=== PATIENT | female | born 1975 | race Caucasian/White ===

== ENCOUNTER 2023-02-12 09:19 | Outpatient (OUT) | payer OTHER, SELFPAY ==
--- NOTE | 2023-02-12 09:21 | MM_ITS ---
Patient: EBER GOODE Exam Date: 02/12/2023 : 1975 Gender:F Ordering : DR RAVIN LOJA Admission #: [id number] Family : DR Mamie Liu M.D. Order #: [id number] CLICK HERE TO VIEW EXAM RADIOLOGY REPORT PROCEDURE: MM TOMOSYNTHESIS SCREENING BI COMPARISON: MG MAMM SCREEN 3D MAURICIO CAD, 09/07/2020. MG MAMM SCREEN 3D MAURICIO CAD, 02/04/2022. INDICATIONS: Screening Calculator Name NCI Breast Cancer Risk Assessment Tool 5 Year Breast Cancer Risk 1.20% Lifetime Breast Cancer Risk 11.30% Personal Breast Cancer No Personal Ovarian Cancer No Treatments None Family Cancers Grandfather-paternal with pancreatic cancer at age 50; Grandmother-maternal with lung cancer at age 75. LOCATION: [facility] BREAST COMPOSITION: Heterogeneously dense,which may obscure small masses. FINDINGS: DIAGNOSTIC CATEGORY 2--BENIGN FINDING. NO CHANGE FROM COMPARISON. Scattered benign-appearing nodules are present. Scattered benign-appearing calcifications are present. Scattered benign-appearing lymph nodes are present. RIGHT BREAST: No significant suspicious finding. LEFT BREAST: No significant suspicious finding. RECOMMENDATIONS: ROUTINE MAMMOGRAM AND CLINICAL EVALUATION IN 12 MONTHS. PLEASE NOTE: A NORMAL MAMMOGRAM DOES NOT EXCLUDE THE POSSIBILITY OF BREAST CANCER. A CLINICALLY SUSPICIOUS PALPABLE LUMP SHOULD BE BIOPSIED. Dictated by: Rodrigo Kaye MD on 02/12/2023 at 14:46 Approved by: Rodrigo Kaye MD on 02/12/2023 at 14:48
== END 2023-02-12 09:20 | disposition home or self-care (01) ==
LOC: MAMMO 09:19
PROVIDERS: PCP Family Medicine; Visit Provider Obstetrics & Gynecology
DX: Z12.31 Encounter for screening mammogram for malignant neoplasm of breast (principal); Z80.1 Family history of malignant neoplasm of trachea, bronchus and lung; Z80.8 Family history of malignant neoplasm of other organs or systems
CPT/HCPCS: 77063; 77067

== ENCOUNTER 2024-05-11 07:45 | Outpatient (OUT) | payer OTHER, SELFPAY ==
--- NOTE | 2024-05-11 07:47 | MM_ITS ---
Patient Name: EBER GOODE MR#: [id number] : 1975 Exam Date: 05/11/2024 Ordering Doctor: DR RAVIN LOJA RADIOLOGY REPORT PROCEDURE: MM TOMOSYNTHESIS SCREENING BI COMPARISON: MM TOMOSYNTHESIS SCREENING BI, 02/12/2023. MG MAMM SCREEN 3D MAURICIO CAD, 02/04/2022. MG MAMM MAURICIO SCRN W CAD DIG, 06/05/2015. INDICATIONS: Screening Calculator Name NCI Breast Cancer Risk Assessment Tool 5 Year Breast Cancer Risk 1.30% Lifetime Breast Cancer Risk 11.00% Personal Breast Cancer No Personal Ovarian Cancer No Treatments None Family Cancers Grandfather-paternal with pancreatic cancer at age 50; Grandmother-maternal with lung cancer at age 75. LOCATION: [facility] BREAST COMPOSITION: The breasts are heterogeneously dense,which may obscure small masses. FINDINGS: DIAGNOSTIC CATEGORY 2--BENIGN FINDING: RIGHT BREAST: No significant suspicious finding. No significant change has occurred. LEFT BREAST: No significant suspicious finding. Small benign appearing lymph node within anterior upper inner quadrant near the nipple line. RECOMMENDATIONS: ROUTINE MAMMOGRAM AND CLINICAL EVALUATION IN 12 MONTHS. PLEASE NOTE: A NORMAL MAMMOGRAM DOES NOT EXCLUDE THE POSSIBILITY OF BREAST CANCER. A CLINICALLY SUSPICIOUS PALPABLE LUMP SHOULD BE BIOPSIED. Dictated by: Raciel Garcia M.D. on 05/12/2024 at 15:36 Approved by: Raciel Garcia M.D. on 05/12/2024 at 15:43
--- OUTSIDE RECORDS SUMMARY | 2024-05-11 07:48 | XMS_ITS | CCD ---
Author Organization [facility] Care Team Providers Care Assistant Professor Nurse Education Name Role Phone Shay POWERS, Mamie Primary Care Provider TONNY, DR TATA Chavez Consulting Unavailable FREEDOM, DR KENNY Crespo Admitting Unavailable FREEDOM, DR KENNY Crespo Attending Unavailable SHAY, DR MAMIE Rush Primary Care Unavailable FREEDOM, DR KENNY Crespo Consulting Unavailable SHAY, DR MAMIE Rush Attending Unavailable PONCHO, DR MERLIN Mccain Consulting Unavailable SHAY, DR MAMIE Rush Admitting Unavailable SHAY, DR MAMIE Rush Primary Care Unavailable SHAY, DR MAMIE Rush Consulting Unavailable LINDSAY, DR ARAUJO Admitting Unavailable LINDSAY, DR ARAUJO Consulting Unavailable LINDSAY, DR ARAUJO Attending Unavailable SHAY, DR MAMIE Rush Primary Care Unavailable Mamie Liu Unavailable Mamie Liu MD Primary Care Provider [phone] KENNY LOJA Referring Unavailable MAMIE LIU Primary Care Unavailable Medications Current Medications Medication Drug Class(es) Dates Sig (Normalized) Sig (Original) clobetasol propionate 0.5 mg/ml topical cream (2 sources) Corticosteroid Clobetasol Propi julio cesar 0.05 % 1 application Externally Twice a day for 10 days Active Problems Active Problems Problem Classification Problem Date Documented Da te Episodic/Chronic Menopausal disorders (1 source) Menopausal symptom; Translations: [Menopausal and female climacteric states] Chronic Other skin disorders (1 source) Dyshidrosis [pompholyx] Episodic Residual codes; unclassified (1 source) Family history of malignant neoplasm of trachea, bronchus and lung; Translations: [FAM HX MALIG NEOPLSM TRACH BRON LNG] Onset: 02-09-2022 Episodic Residual codes; unclassified (1 source) Family history of malignant neoplasm of other organs or systems; Translations: [FAM HX MALIG NEOPLASM OTH ORGN/SYS] Onset: 02-09-2022 Episodic Unclassified (3 sources) CONTACT W/AND (SUSP) EXPOS COVID-19; Translations: [CONTACT W/AND (SUSP) EXPOS COVID-19] Onset: 02-28-2021 Past or Other Problems Problem Classification Problem Date Documented Da te Episodic/Chronic Immunizations and screening for infectious disease (2 sources) Contact with or exposure to other viral diseases; Translations: [Contact with and (suspected) exposure to covid-19] Onset: 01-06-2020 Resolved: 05-23-2023 04-23-2023 Episodic Nonspecific chest pain (7 sources) Other chest pain; Translations: [Chest pain] Onset: 06-04-2021 Episodic Other screening for suspected conditions (not mental disorders or infectious disease) (6 sources) Encounter for screening mammogram for malignant neoplasm of breast; Translations: [Encounter for screening for malignant neoplasm of colon] Onset: 09-07-2020 Resolved: 05-23-2023 Episodic Residual codes; unclassified (2 sources) Family history of cancer; Translations: [Family history of malignant neoplasm of trachea, bronchus and lung] Onset: 09-16-2020 04-23-2023 Episodic Unclassified (1 source) CONTACT W/AND (SUSP) EXPOS COVID-19; Translations: [CONTACT W/AND (SUSP) EXPOS COVID-19] Onset: 02-25-2021 Results Test Name Value Interpretation Reference Range Facility MG MAMM SCREEN 3D MAURICIO CADon 02-04-2022 MG MAMM SCREEN 3D MAURICIO CAD Patient: MEREDITH OLIVO Exam Date: 02/04/2022 : 1975 Gender:F Ordering : DR KENNY LOJA Admission #: [id number] Family : Order #: [id number] CLICK HERE TO VIEW EXAM RADIOLOGY REPORT PROCEDURE: MAMMOGRAM SCREENING 3D BILATERAL CAD COMPARISON: MG MAMM SCREEN MAURICIO W CAD, 06/17/2018. MG MAMM SCREEN 3D MAURICIO CAD, 09/07/2020. INDICATIONS: Screening mammography Calculator Name NCI Breast Cancer Risk Assessment Tool 5 Year Breast Cancer Risk 1.10% Lifetime Breast Cancer Risk 11.40% Personal Breast Cancer No Personal Ovarian Cancer No Treatments None Family Cancers Grandfather-paternal with pancreatic cancer at age 50; Grandmother-maternal with lung cancer at age 75. LOCATION: [facility] BREAST COMPOSITION: Heterogeneously dense,which may obscure small masses. FINDINGS: DIAGNOSTIC CATEGORY 2--BENIGN FINDING. NO CHANGE FROM COMPARISON. Scattered benign-appearing nodules are present. Scattered benign-appearing calcifications are present. Scattered benign-appearing lymph nodes are present. RIGHT BREAST: No significant suspicious finding. LEFT BREAST: No significant suspicious finding. RECOMMENDATIONS: ROUTINE MAMMOGRAM AND CLINICAL EVALUATION IN 12 MONTHS. PLEASE NOTE: A NORMAL MAMMOGRAM DOES NOT EXCLUDE THE POSSIBILITY OF BREAST CANCER. A CLINICALLY SUSPICIOUS PALPABLE LUMP SHOULD BE BIOPSIED. Dictated by: Tata Lancaster MD on 02/04/2022 at 11:08 Approved by: Ttaa Lancaster MD on 02/04/2022 at 11:10 [address] [facility] XR CHEST 2 Von 06-04-2021 XR CHEST 2 V EXAMINATION: XR CHEST 2 V HISTORY: Chest pain ; right chest wall pain, no known injury COMPARISON: No relevant comparison available. FINDINGS: LUNGS: Small dense calcified nodule within left lung base favoring a chronic granuloma. Lungs well-expanded and clear. VASCULATURE: No increased pulmonary vasculature. PLEURA: No pneumothorax, effusion, or pleural thickening. CARDIAC: No cardiomegaly or cardiac silhouette abnormality. MEDIASTINUM: No visible mass or adenopathy. BONES: No visible fracture or visible bone lesion. OTHER: Negative. IMPRESSION: 1. No acute cardiopulmonary process. 2. No appreciable rib abnormality or suspicious findings to account for patient's symptoms. Electronically authenticated by: MERLIN ISAAC Date: 2021-06-04 18:[address] [facility]11 SARS-CoV-2 (COVID-19) RNA DOMITILA+probe Ql (Unsp spec) Not detected Normal NOT DETECTED [facility] Comment on above: Result Comment: This test is not yet approved or cleared by the [place] FDA. When there are no FDA-approved or cleared tests available, and other criteria are met, FDA can make tests available under an emergency access mechanism called an Emergency Use Authorization (EUA). The EUA for this test is supported by the [place] Dra[employer] of Health and Human Service's (HHS's) declaration that circumstances exist to justify the emergency use of in vitro diagnostics for the detection and/or diagnosis of the virus that causes COVID-19. This EUA will remain in effect (meaning this test can be used) for the duration of the COVID-19 declaration justifying emergency of IVDs, unless it is terminated or revoked by FDA (after which the test may no longer be used). When diagnostic testing is negative, the possibility of a false negative should be considered in the context of a patient's recent exposures and the presence of clinical signs and symptoms consistent with SARS-CoV-2. Performed By: #### C PENDING SALE TO [facility] #### [facility] [address] [place] [address] Dr. Susi Bhardwaj EstradiolOrdered By: Kenny Loja on 08-30-2020 Estradiol 12 pg/mL Low 27 - 314 pg/mL [facility] Work Phone: Comment on above: FEMALES: Normally menstruating Luteal phase 33-298 Follicular phase 27-156 Midcycle phase 48-314 Postmenopausal (untreated) 5-50 Fulvestrant treatment will show an increased estradiol concentration with this methodology. Alternate methodologies are available upon request. Follicle Stimulating Hormone Ordered By: Kenny Loja on 08-30-2020 FSH 66.1 U/L High 1.7 - 21.5 U/L [facility] Work Phone: Comment on above: Reference Range: Male: 1.5-12.4 Ovulating Female: Follicular Phase 3.5-12.5 Ovulation Phase 4.7-21.5 Luteal Phase 1.7-7.7 Postmenopausal Female: 25.8-134.8 No Panel InformationOrdered By: Kenny Loja on 08-30-2020 Interpretation and review of laboratory results Abnormal [facility] Phone: [facility] Phone: Vital Signs Date Time Vital Sign Value Performing Clinician Facility 12-23-2022 09:15-0400 Body height 167.64 cm Mamie Liu Other [facility] Other 12-23-2022 09:15-0400 Body mass index (BMI) [Ratio] 28.02 kg/m2 Mamie Liu Other [facility] Other 12-23-2022 09:15-0400 Body weight 78.74 kg Mamie Liu Other [facility] Other 12-23-2022 09:15-0400 Diastolic blood pressure 67 mm[Hg] Mamie Liu Other [facility] Other 12-23-2022 09:15-0400 Respiratory rate 12 /min Mamie Liu Other [facility] Other 12-23-2022 09:15-0400 Systolic blood pressure 109 mm[Hg] Mamie Liu Other [facility] Other Encounters Encounter Date Encounter Type Care Provider Facility Start: 05-05-2024 End: 05-05-2024 ambulatory [facility] Start: 05-05-2024 Encounter for gynecological examination (general) (routine) without abnormal findings [facility] Start: 05-05-2024 End: 05-05-2024 Patient encounter procedure Mamie Liu MD Work Phone: [facility] Start: 05-05-2024 End: 05-05-2024 Subsequent hospital visit by physician Mamie Liu MD Work Phone: [facility] Comment on above: Women's annual routi ne gynecological examination Start: 01-13-2023 End: 01-13-2023 ambulatory Mamie Liu Other [facility] Other Start: 01-13-2023 Telephone encounter Mamie Liu [facility] Start: 12-23-2022 End: 12-23-2022 ambulatory Mamie Liu Other [facility] Other Start: 12-23-2022 Encounter for genera l adult medical examination without abnormal findings Mamie Liu [facility] Start: 12-23-2022 Office outpatient vi sit 15 minutes Mamie Liu [facility] Start: 02-04-2022 End: 02-05-[address] TATA LANCASTER Facility:[facility] Start: 06-04-2021 End: 06-05-[address] MAMIE LIU Facility:[facility] Start: 02-25-2021 End: 02-25-[address] GAYLE MONTOYA Facility:[facility] Start: 08-30-2020 End: 08-30-2020 Patient encounter procedure Mamie iLu MD Work Phone: [email or web address] Start: 08-30-2020 End: 08-30-2020 Subsequent hospital visit by physician Mamie Liu MD Work Phone: [email or web address] Comment on above: Menopausal symptoms; Women's annual routine gynecological examination Procedures Date Procedure Procedure Detail Performing Clinician Start: 04-23-2023 Microscopic observat ion [Identifier] in Cervix by Cyto stain Mamie Liu MD Work Phone: Start: 08-30-2020 Gonadotropin follicl e stimulating hormone Kenny Loja MD Work Phone: Plan of Treatment Date Care Activity Detail Author Start: 02-02-2028 DTaP/Tdap/Td vaccine (2 - Td or Tdap) DTaP/Tdap/Td vaccine (2 - Td or Tdap) [facility] [employer] Start: 04-23-2026 Screening for malign ant neoplasm of cervix [facility] Start: 02-12-2025 Screening for malign ant neoplasm of breast Breast cancer screen [facility] Start: 12-13-2023 COVID-19 Vaccine ( season) COVID-19 Vaccine ( season) [facility] Start: 11-12-2023 Influenza vaccination Flu vaccine (# 1) [facility] Start: 2023 Shingles vaccine (1 of 2) Shingles vaccine (1 of 2) [facility] Start: 11-18-2021 Screening for malign ant neoplasm of cervix Cervical cancer screen [employer] Work Phone: Start: 09-02-2021 End: 09-02-2021 Patient encounter procedure 09/02/2021 Office Visit Obstetrics and Gynecology Kenny Loja MD [address] [place] [address] [address] [facility] Start: 12-12-2020 Influenza vaccination Flu vacc ine (Season Ended) [facility] Phone: Start: 2018 Screening for malign ant neoplasm of colon [facility] [employer] Start: 2013 Diabetes screen Diabetes screen [employer] Phone: Start: 2013 Lipid panel [facility] [employer] Start: 2008 Diabetes screen Diabetes screen [facility] Start: 2003 Screening for malign ant neoplasm of cervix HPV (without or with Pap) [facility] Start: 1992 DTaP/Tdap/Td vaccine (1 - Tdap) DTaP/Tdap/Td vaccine (1 - Tdap) [facility] Phone: Start: 1992 Hepatitis B vaccine (1 of 3 - 19+ 3-dose series) Hepatitis B vaccine (1 of 3 - 19+ 3-dose series) [facility] Start: 1991 Hepatitis C screening Hepatitis C [facility] Start: 1988 HIV screening HIV screen [facility] [employer] Start: 1985 COVID-19 Vaccine (1) COVID-19 Vaccin e (1) [facility] Phone: Start: 1985 Depression Screen Depression Screen [facility] [employer] Start: 1975 Hepatitis C [facility] End: 08-30-2020 Cytopathology procedure, preparation of smear, genital source [facility] Routine Women's Annual Routine Gynecological Examination 1 Occurrences starting 08/30/2020 until 08/30/2020 [facility] Phone: Comment on above: 1 Occurrences starti ng 08/30/2020 until 08/30/2020 End: 05-05-2024 Cytopathology procedure, preparation of smear, genital source [facility] Lab Routine Women's annual routine gynecological examination 1 Occurrences starting 05/05/2024 until 05/05/2024 [employer] Phone: Comment on above: 1 Occurrences starti ng 05/05/2024 until 05/05/2024 Immunizations Immunization Date Immunization Notes Care Provider Oscar toure 02-01-2018 tetanus toxoid, reduced diphtheria toxoid, and acellular pertussis vaccine, adsorbed Mamie Liu Other [facility] [employer] Other Payers Date Payer Category Payer Unknown [id number] 1975 Unknown [id number] 1975 Unknown [id number] 1975 Unknown [id number] 1961 Unknown [id number] Social History Date Type Detail Facility Start: 11-16-2017 End: 08-30-2020 Tobacco smoking status OKIS Never smoker [employer] Phone: Start: 11-16-2017 End: 08-30-2020 Tobacco use and exposure Never used [employer] Start: 08-30-2020 End: 05-05-2024 Alcohol intake Current non-drinker of alcohol (finding) [employer] Phone: Start: 1975 Sex Assigned At Not on file [employer] Phone: Start: 05-05-2024 Sex Assigned At N [facility] [employer] Other Start: 05-05-2024 History of Social function [employer] Has the [employer], [employer], or water [employer] threatened to shut off services in your home in past 12Mo No [employer] Patient Health Questionnaire 9 item (PHQ-9) total score [Reported] 0 [employer] (I/We) worried wheth er (my/our) food would run out before (I/we) got money to buy more. Never true [employer] Evaluation note 12-23-2022 Note Date & Type Note Facility 12-23-2022 Evaluation note Encounter Date Diagnosis Assessment Notes Dec, Dyshidrotic eczema (ICD-10 - L30.1) Discussed mild soaps, good moisturizers . If no improvement, contact us and we can set up w dermatology. Only her hands are affected. Dec, Wellness examination (ICD-10 - Z00.00) Pt requests wellness labs - today was not a wellness OV Dec, Screening for colon cancer (ICD-10 - Z12.11) [facility] Other Evaluation note Note Date & Type Note Facility Evaluation note Diagnosis Menopausal symptoms Symptomatic menopausal or female climacteric states Women's annual routine gynecological examination documented in this encounter [employer] Work Phone: Evaluation note Note Date & Type Note Facility Evaluation note No Information [facility] Other Evaluation note Note Date & Type Note Facility Evaluation note Diagnosis Women's annual routine gynecological examination documented in this encounter [employer] History general Narrative - Reported Note Date & Type Note Facility History general Narrative - Reported Type Medical History Right-sided chest wall pain Surgical History No know Surgical history [facility] Other Advance Directives No Advanced Directives Records FoundDocuments on File Type Date Recorded Patient Modern Languages Professor Expl anation ACP-Advance Directive ACP-Power of Pacs Administrator Summary Purpose Family History No Family History Records FoundNo Family History Records Found Additional Source Comments INFORMATION SOURCE (unrecogn ized section and content) DATE CREATED AUTHOR 02/09/2022 [facility] DATE CREATED AUTHOR AUTHOR'S ORGANIZ ATION 05/07/2024 [facility] REASON FOR VISIT (unrecogniz ed section and content) Rash on handscologuard negat alban Care Teams (unrecognized sec tion and content) Assistant Professor Nurse Education Relationship Specialty Start Date End Date Mamie Liu MD [address] [place] [id number] PCP - General Family Medicine 08/30/20 FOR RECORDS PERTAINING TO PATIENTS WHO ARE OR HAVE BEEN ENROLLED IN A CHEMICAL DEPENDENCY/SUBSTANCEABUSE PROGRAM, SOME INFORMATION MAY BE OMITTED. This clinical summary was aggregated from multiple sources. Caution should be exercised in using it in the provision of clinical care. This summary normalizes information from multiple sources, and as a consequence, information in this document may materially change the coding, format and clinical context of patient data. In addition, data may be omitted in some cases. CLINICAL DECISIONS SHOULD BE BASED ON THE PRIMARY CLINICAL RECORDS. [facility] provides no warranty or guarantee of the accuracy or completeness of information in this document.
== END 2024-05-11 07:46 | disposition home or self-care (01) ==
LOC: MAMMO 07:45
PROVIDERS: PCP Family Medicine; Visit Provider Obstetrics & Gynecology
DX: Z12.31 Encounter for screening mammogram for malignant neoplasm of breast (principal); Z80.1 Family history of malignant neoplasm of trachea, bronchus and lung; Z80.8 Family history of malignant neoplasm of other organs or systems
CPT/HCPCS: 77063; 77067